=== PATIENT | female | born 1985 | race Caucasian/White ===

== ENCOUNTER → 2016-11-09 | Outpatient (CLI) | payer BC ==
[~2016-11-09] MED LIST: LEVO150T9 PO; OMEP40CA PO; ROPI0.25 PO; SUMA50TA15 PO; VITAMIN B12 PO
[2016-11-09 12:37] LABS: ESTIMATED AVERAGE GLUCOSE 105 mg/dl; HA1C FLAG Normal (Normal); THYROID STIMULATING HORMONE 2.16 uIu/ml (0.300-4.500)
[2016-11-12 20:33] LABS: IGA SERUM 200 mg/dL (81-463); TIS TRANS IGA 1 U/mL (<4)
== END | disposition home or self-care (01) ==
LOC: C.LABBFT 07:50
PROVIDERS: ATTEND Internal Medicine
DX: R10.9 Unspecified abdominal pain (principal); R73.9 Hyperglycemia, unspecified; E03.9 Hypothyroidism, unspecified

== ENCOUNTER → 2017-02-02 | Outpatient (CLI) | payer BC ==
[2017-02-06 22:28] LABS: IGA SERUM 207 mg/dL (81-463); TIS TRANS IGA 1 U/mL (<4)
== END | disposition home or self-care (01) ==
LOC: C.LABBFT 16:06
PROVIDERS: ATTEND Internal Medicine
DX: R10.9 Unspecified abdominal pain (principal)

== ENCOUNTER → 2017-07-12 | Outpatient (CLI) | payer BC | END | disposition home or self-care (01) | LOC: C.PAPS 11:14 | PROVIDERS: ATTEND Obstetrics & Gynecology | DX: Z01.419 Encounter for gynecological examination (general) (routine) without abnormal findings (principal) ==

== ENCOUNTER → 2017-07-31 | Outpatient (CLI) | payer BC ==
[2017-07-31 17:38] LABS: BASO % 0.7 %; BASO ABS # 0.04 K/uL (0-0.2); COMPLETE YES; EOS % 1.8 %; HEMATOCRIT 40.6 % (37-47); IG% 0.2 %; LYMPH % 28.7 %; LYMPH ABS # 1.75 K/uL (1.2-3.4); MEAN CELL VOLUME 89.2 fL (80-100); MEAN CORPUSCULAR HEMOGLOBIN 31.6 pg (25-34); MEAN CORPUSCULAR HGB CONC 35.5 g/dl (32-36); MEAN PLATELET VOLUME 9.6 fL (7.4-10.4); MONO % 5.7 %; NEUT % 62.9 %; PLATELET COUNT 212 K/uL (130-400); RED BLOOD COUNT 4.55 M/uL (4.2-5.4); WHITE BLOOD COUNT 6.09 K/uL (4.8-10.8)
[2017-07-31 17:59] LABS: BLOOD UREA NITROGEN 7 mg/dl (7-18); BUN/CREATININE RATIO 10.7 (10-20); CALCIUM 8.9 mg/dl (8.5-10.1); CARBON DIOXIDE 27 mmol/L (21-32); CHLORIDE 106 mmol/L (98-107); CREATININE 0.68 mg/dl (0.60-1.20); GLUCOSE 86 mg/dl (70-99); POTASSIUM 3.9 mmol/L (3.5-5.1); SODIUM 139 mmol/L (136-145)
[2017-07-31 18:03] LABS: ALKALINE PHOSPHATASE 67 U/L (45-117); ALT/SGPT 28 U/L (12-78); AST/SGOT 14 U/L (15-37)
== END | disposition home or self-care (01) ==
LOC: C.LABBFT 14:21
PROVIDERS: ATTEND Physician Assistant Medical
DX: R10.11 Right upper quadrant pain (principal)

== ENCOUNTER → 2017-08-02 | Outpatient (CLI) | payer BC ==
--- NOTE | 2017-08-02 10:17 | DIAGNOSTIC IMAGING REPORT ---
ABDOMINAL ULTRASOUND, RIGHT UPPER QUADRANT HISTORY: R10.11 Abdominal pain, RUQ (right upper quadrant)[id number]. COMPARISON: Abdominal ultrasound 09/05/2014. FINDINGS: Pancreas: The pancreatic tail is obscured by overlying bowel gas. The remaining portions of the pancreas are within normal limits. Liver: 20 cm in length. No hepatic masses. The main portal vein is patent. Gallbladder: No gallbladder wall thickening. No gallstones. CBD: 4 mm. Right kidney: No hydronephrosis. IMPRESSION: 1. Mild hepatomegaly. No hepatic masses. 2. Normal gallbladder. No gallstones. Electronically signed by: Blaze Mercer M.D. 08/02/2017 10:16 AM Dictated Date/Time: 08/02/2017 10:15 AM
== END | disposition home or self-care (01) ==
LOC: C.ULTR 09:52
PROVIDERS: ATTEND Physician Assistant Medical
DX: R10.11 Right upper quadrant pain (principal)

== ENCOUNTER → 2017-08-14 | Outpatient (CLI) | payer BC ==
[~2017-08-14] MED LIST changes: +SINCALIDE INJ 2 MCG in SODIUM CHLORIDE 0.9% 100ML 100 ML IV SCH
--- NOTE | 2017-08-14 11:22 | DIAGNOSTIC IMAGING REPORT ---
HEPATOBILIARY EF IMAGING HISTORY: Pain. Nausea. R10.11 Abdominal pain, RUQ (right upper quadrant)EJECTION FRACTIO COMPARISON: None. TECHNIQUE: Immediately following the intravenous administration of 5.0 mCi Tc-99m Choletec, dynamic anterior abdominal imaging pre/post 2 mcg of Kinevac was performed. FINDINGS: Uniform hepatic tracer accumulation is shown. Prompt intrahepatic biliary excretion is seen. The gallbladder, common bile duct, and small bowel are all visualized by 25 minutes. This appearance represents the normal sequence of biliary excretion. The gallbladder ejection fraction following administration of Kinevac was 82 % (normal >35%). IMPRESSION: 1. No evidence for cystic duct obstruction. 2. Gallbladder ejection fraction calculated to be 82 %. The above report was generated using voice recognition software. It may contain grammatical, syntax or spelling errors. Electronically signed by: Wicho Ozuna M.D. 08/14/2017 11:20 AM Dictated Date/Time: 08/14/2017 11:19 AM
== END | disposition home or self-care (01) ==
LOC: C.NUCL 08:02
PROVIDERS: ATTEND Physician Assistant Medical
DX: R10.11 Right upper quadrant pain (principal)

== ENCOUNTER 2020-02-10 07:37 | Inpatient (IN) ==
[2020-02-10] MEDS ORDERED: OXYTOCIN 30 UNITS/500 ML BAG IV PRN ×2 (09:00)
[2020-02-10 09:20] LABS: Hematocrit (blood only) 39.1 % (37-47); Hemoglobin 13.7 g/dL (12.0-16.0); Mean Corpuscular Hemoglobin 32.3 pg (25-34); Mean Corpuscular Volume 92.2 fL (80-100); Mean Platelet Volume 9.2 fL (7.4-10.4); Platelet Count 210 K/uL (130-400); RDW Coefficient of Variation 12.6 % (11.5-14.5); RDW Standard Deviation 42.6 fL (36.4-46.3); Red Blood Count 4.24 M/uL (4.2-5.4); White Blood Count 11.61 K/uL (4.8-10.8)
[2020-02-10] MEDS: LACTATED RINGER'S 1,000 ML IV PRN ×2 (09:25→11:50)
--- NOTE | 2020-02-10 10:08 | History & Physical Report ---
Date of Service February 10, 2020 Assessment & Plan (1) Insulin controlled gestational diabetes mellitus (GDM) during : (2) Advanced maternal age in multigravida: (3) 39 weeks gestation of : admit, iv, labs. start pitocin, plan arom when able. pt wants to have epidural for pain mgmt ultimately. fhts categ 1. bsgs q 2hr. History of Present Illness Chief Complaint: Planned induction for GDM on insulin. Primary Care Provider: Sina Duran MD 35yo at 39+wls ega presents to L&D with above cc. Patient denies rom, vb. +FM. no regular ctx. She came in and had gimenez balloon placed intracervically and it fell out about 6am today. She notes am bsg was a little high. Ate breakfast of pop tart and 2 pieces of toast. pnc c/b 1. GDM on insulin--last growth 01/15 EFW 70%, nst testing, nl dvp on monday 2. AMA--low risk panorama 3. Hypothyroid--followed endo 4. Prior Gest HTN--on baby asa 5. Low lying placenta resolved 6. h/o stomach ulcers--has been seeing GI, on carafate 7. could not get heart anatomy x 2, nl echo pnl rh pos , rubella immune , gbs neg. obh: x 1, sab x 1 gynh: no stds, h/o LEEP pmh: migraines, depression/anxiety, rancho's thyroiditis, h/o stomach ulcers, psh: wisdom teeth, tonsillectomy Allergies Allergy/AdvReac Type Severity Reaction Status Date / Time levothyroxine sodium Allergy Intermediate hives Verified 02/10/20 08:02 [From Tirosint] buspirone Allergy Mild DIZZY Verified 02/07/20 08:45 lactase [From Dairy Aid] Allergy Mild Diarrhea Verified 02/10/20 08:02 oxycodone Allergy Mild NAUSEA Verified 02/07/20 08:45 pollen extracts Allergy Mild Itchy Verified 02/10/20 08:02 gluten AdvReac Mild Abdominal Verified 02/07/20 08:45 Pain predniSONE TABS Allergy Intermediate Hives Uncoded 02/10/20 08:02 Vicodin TABS Allergy Intermediate Nausea Uncoded 02/10/20 08:02 Percocet TABS Allergy Mild Nausea Uncoded 02/10/20 08:02 Home Medications Home Medications Medication Instructions Recorded Confirmed Type levothyroxine 200 mcg tablet 200 mcg PO DAILY #90 tab 06/26/19 02/10/20 Rx acetone (urine) test #50 ea 08/30/19 02/07/20 Rx blood sugar diagnostic #120 ea 08/30/19 02/07/20 Rx lancets 33 gauge #100 ea 08/30/19 02/07/20 Rx omeprazole 40 mg capsule,delayed 40 mg PO DAILY #90 cap 11/06/19 02/10/20 Rx release insulin syringe-needle U-100 0.5 #40 ea 12/23/19 02/07/20 Rx mL 31 gauge x 5/16" insulin syringe,safetyneedle 1 mL #100 ea 12/25/19 02/07/20 Rx 29 gauge x 1/2" Patient History Family History (Updated 07/15/19 @ 14:20 by Lexy Hanley) Mother Diabetes Hypothyroidism (acquired) Heart disease Liver disease Depression Grandfather (Maternal) Family hx of colon cancer Grandmother (Paternal) Breast cancer Grandmother (Maternal) Cervical cancer Social History (Updated 07/15/19 @ 14:23 by Lexy Hanley) Preferred Language: Luxembourgish Communication Ability: Effective Final Coat Sprayer Required: No Beliefs That Will Affect Care: None marital status: Single marital status details: ILYA Hill (34) [phone] Current Living Situation: Parent Current Living Situation Comment: Patient lives with her mother and son. current occupational status: employed current occupation: commercial real estate manager @ [employer] Other Information That Helps Us Care for You: No Feels Safe at Home: Yes Safety Concerns: Feels Safe At This Time Smoking Status: Current every day smoker Tobacco Type: cigarettes ; packs per day: 0.5 ; Cigarettes Per Day: 10 ; Do You Dip or Chew Tobacco: No ; Second Hand Exposure: Yes ; Tobacco Cessation Education Requested by Patient: No Hx Alcohol Use: No Hx Substance Use: No Review of Systems as per Subjective / HPI Physical Exam Constitutional: WD/WN, vitals as above Respiratory: normal respiratory effort, lungs clear to auscultation Cardiovascular: Rate/Rhythm: regular rate and regular rhythm Gastrointestinal (Abdomen): soft gravid nt Musculoskeletal: no edema nontender calves Neurologic: grossly normal Psychiatric: A+Ox3, euthymic affect Genitourinary: Manual OB Exam: + cervical dilation (4), + cervical effacement 50% and + station high OB Exam Monitor Tracing: + external FHT monitor used (155 mod variability, spont accels), + external uterine monitor used (irrit) and + normal FHT variability Results & Data Vital Signs (Past 12 Hours) Vital Signs Temp Pulse Resp BP 02/10/20 09:27 93 H 128/83 02/10/20 08:04 99.1 F 20 02/10/20 07:55 99.1 F 123 H 20 124/85 Code Status & VTE Plan VTE Prophylaxis Plan VTE Prophylaxis will be ordered: No Coding Level of Care Code None Diagnoses Insulin controlled gestational diabetes mellitus (GDM) during O24.414 Advanced maternal age in multigravida O09.529 39 weeks gestation of Z3A.39
[2020-02-10] MEDS ORDERED: BUPIVACAINE 0.25% 30 ML VIAL ONE (11:14)
[2020-02-10] MEDS ORDERED: ePHEDrine sulfate 50 MG/ML AMP ONE (11:14)
[2020-02-10] MEDS ORDERED: fentaNYL 2MCG/ML ROPIV 1.25MG/ML 100 ML BAG EPI ONE (11:15)
[2020-02-10] MEDS ORDERED: fentaNYL citrate 100 MCG/2 ML VIAL ONE (11:15)
--- NOTE | 2020-02-10 11:31 | Anesthesiology Consultation ---
Date of Service February 10, 2020 Assessment & Plan (1) Encounter for pre-operative examination: Chart Review Chart Review: Patient NOT seen in Pre Admission Testing and Acceptable Risk for Labor Epidural Consults Requested none ASA ASA3 Proposed Anesthesia Anesthesia Type: Labor Epidural Risk / Benefits Reviewed With: PT / POA / Parent / Guardian, Accepts Plan and Informed Consent Obtained History Height/Weight Height: 5 ft 10 in Weight: 99.79 kg Allergies Allergy/AdvReac Type Severity Reaction Status Date / Time levothyroxine sodium Allergy Intermediate hives Verified 02/10/20 08:02 [From Tirosint] buspirone Allergy Mild DIZZY Verified 02/07/20 08:45 lactase [From Dairy Aid] Allergy Mild Diarrhea Verified 02/10/20 08:02 oxycodone Allergy Mild NAUSEA Verified 02/07/20 08:45 pollen extracts Allergy Mild Itchy Verified 02/10/20 08:02 gluten AdvReac Mild Abdominal Verified 02/07/20 08:45 Pain predniSONE TABS Allergy Intermediate Hives Uncoded 02/10/20 08:02 Vicodin TABS Allergy Intermediate Nausea Uncoded 02/10/20 08:02 Percocet TABS Allergy Mild Nausea Uncoded 02/10/20 08:02 Medications Home Medications Medication Instructions Recorded Confirmed Last Taken levothyroxine 200 mcg tablet 200 mcg PO DAILY #90 tab 06/26/19 02/10/20 02/10/20 06:30 acetone (urine) test #50 ea 08/30/19 02/07/20 Unknown blood sugar diagnostic #120 ea 08/30/19 02/07/20 Unknown lancets 33 gauge #100 ea 08/30/19 02/07/20 Unknown omeprazole 40 mg capsule,delayed 40 mg PO DAILY #90 cap 11/06/19 02/10/20 23:00 release insulin syringe-needle U-100 0.5 #40 ea 12/23/19 02/07/20 Unknown mL 31 gauge x 5/16" insulin syringe,safetyneedle 1 mL #100 ea 12/25/19 02/07/20 Unknown 29 gauge x 1/2" Active Medications Generic Name Dose Route Start Last Admin Trade Name Freq PRN Reason Stop Dose Admin Lactated Ringer's 1,000 mls @ 125 mls/hr 02/10/20 09:00 02/10/20 11:50 Lr IV 02/12/20 08:59 125 mls/hr .Q8H PRN Administration L&D Protocol Protocol Oxytocin 30 units in 500 mls @ 3 mls/hr 02/10/20 09:00 02/10/20 10:04 Pitocin IV 02/12/20 08:59 0.18 units/hr .Q24H PRN 3 mls/hr Labor Induction/Augmentation Titration Protocol 0.18 UNITS/HR NPO Date Last Intake of Fluids: 02/10/20 Time Last Intake of Fluids: 11:29 Date Last Intake of Solids: 02/10/20 Time Last Intake of Solids: 07:00 Past Medical History Medical History Anxiety Chronic back pain Depression Dysplasia of cervix Family history of colonic polyps GERD (gastroesophageal reflux disease) Gestational diabetes Gestational diabetes mellitus (GDM) affecting , antepartum Gluten intolerance Hypertension NO MEDS Hypothyroidism Migraine Miscarriage induced hypertension Restless leg syndrome Sleep apnea "BORDERLINE" NO DEVICE Stomach ulcer Varicella Yeast infection Exercise / Class Metabolic Activity II 4-5 Yardwork/Stairs/Walk up hill Past Family History Family History Mother Diabetes Hypothyroidism (acquired) Heart disease Liver disease Depression Grandfather (Maternal) Family hx of colon cancer Grandmother (Paternal) Breast cancer Grandmother (Maternal) Cervical cancer Past Surgical History Surgical History Family history of reaction to anesthesia MOTHER-PONV H/O LEEP History of colonoscopy History of dilatation and curettage History of esophagogastroduodenoscopy (EGD) History of tonsillectomy History of tooth extraction Nausea and vomiting after administration of anesthetic agent Past Anesthesia History No Hx of Anesthesia Complications History of PONV History of PONV Social History Smoking Status: Current every day smoker tobacco type: cigarettes Smoking cigarettes per day: 10 Do You Dip or Chew Tobacco: No Hx Alcohol Use: No Hx Substance Use: No substance use type: does not use Review of Systems Patient denies history of abnormal bleeding or bleeding disorder. Patient denies active use of anticoagulants other than low dose aspirin. Patient denies active symptoms of GERD. Patient denies numbness, tingling or weakness in lower extremities. Negative for chest pain or shortness of breath. Physical Exam Vital Signs Last Vital Signs Temp 36.6 C 02/10/20 10:37 Pulse 73 02/10/20 11:32 Resp 20 02/10/20 10:37 BP 123/82 02/10/20 11:24 Pulse Ox 100 02/10/20 11:32 Constitutional not obese (Gravid uterus) ENMT Mouth: no TMJ abnormality and oral opening not small Thyromental Distance: > or= 3.5 Finger Breadths Mallampati Class: II Neck normal visual inspection; neck extension not limited Respiratory normal respiratory effort Auscultation: lungs clear to auscultation bilaterally Cardiovascular Rate/Rhythm: regular rate and regular rhythm Heart Sounds: no murmur Neurologic moves all extremities Motor/Sensory: no sensory deficit Psychiatric Orientation: alert and oriented x 3 Testing Laboratory Results 02/10/20 09:10 02/10/20 02/10/20 10:35 08:39 POC Glucose 71 128 H
[2020-02-10] MEDS ORDERED: NALOXONE HCL 0.4 MG/1 ML VIAL/CARP IV PRN ×2 (12:19→15:42)
[2020-02-10] MEDS ORDERED: NALBUPHINE HCL INJ 10 MG/ML AMP IV PRN ×2 (12:19→15:42)
[2020-02-10] MEDS ORDERED: NALOXONE HCL 1 MG in SODIUM CHLORIDE 0.9% 1000ML 1,000 ML IV PRN ×2 (12:19→15:42)
[2020-02-10] MEDS ORDERED: ONDANSETRON INJ 2 MG/ML 2 ML VIAL IV PRN ×2 (12:19→15:42)
[2020-02-10] MEDS ORDERED: DiphenhydrAMINE HCL 50 MG/ML VIAL IV PRN (12:19)
[2020-02-10] MEDS ORDERED: ePHEDrine sulfate 50 MG/ML AMP IV PRN ×2 (12:19→15:42)
[2020-02-10] MEDS ORDERED: fentaNYL 2MCG/ML ROPIV 1.25MG/ML 100 ML BAG EPI PRN (12:19)
[2020-02-10] MEDS ORDERED: LIDOCAINE/EPINEPHRINE 2% 1:200,000 20 ML SDV ONE (14:06)
[2020-02-10] MEDS ORDERED: CEFAZOLIN 250 MG/ML 1 GM VIAL ONE ×2 (14:15→15:21)
[2020-02-10] MEDS ORDERED: PHENYLEPHRINE HCL 10 MG/ML VIAL ONE (14:16)
[2020-02-10] MEDS ORDERED: ONDANSETRON INJ 2 MG/ML 2 ML VIAL ONE (14:16)
[2020-02-10] MEDS ORDERED: OXYTOCIN 10 UNITS/ML VIAL ONE ×2 (14:18→14:49)
[2020-02-10] MEDS ORDERED: CARBOPROST TROMETHAMINE 250 MCG/ML AMPUL ONE (14:19)
[2020-02-10] MEDS ORDERED: MIDAZOLAM HCL 1 MG/ML 2ML VIAL ONE (14:24)
[2020-02-10] MEDS ORDERED: MoRPHine SULFATE PF 1 MG/ML 10 ML AMP/VIAL ONE (14:28)
[2020-02-10] MEDS ORDERED: TERBUTALINE SULFATE 1 MG/ML VIAL ONE (14:37)
--- NOTE | 2020-02-10 14:47 | Post Operative Brief Note ---
PG Immediate Post Op with CF Date of Surgery February 10, 2020 Pre & Post Diagnosis Operation Date: 02/10/20 14:15 <No data on this case meets the specified criteria> 1. 39wks ega iup 2. GDM on insulin 3. Pitocin induction 4. bradycardia, remote from delivery I identified the patient and participated in the time-out.: Yes Procedure Operation Date: 02/10/20 14:15 Primary Low Transverse Section Surgeon Catherine Smith MD, FACOG Information Receptionist Donny Estimated Blood Loss 1,000 Findings Consistent with Post-Op Diagnosis (viable male . body cord x 2. normal uterus tubes and ovaries bilaterally) Fluids 700 Specimens Specimen Description: cord blood, cord gases, placenta Drains Henry Catheter Anesthesia Type Labor Epidural Complications none Disposition Accompanied Patient To Recovery: No Disposition: L&D
[2020-02-10 14:54] LABS: Base Excess Cord Arterial Bld -6.1 mEq/L (-9-1.8); CO2 Cord Arterial Blood 60 mmHg (39.1-73.5); HCO3 Cord Arterial Blood 23 mmol/L (19.7-28.5); PO2 Cord Arterial Blood 16 mmHg (4.1-31.7)
[2020-02-10 14:56] LABS: Oxygen Sat Cord Arterial Blood < 60.0 % (<60)
[2020-02-10] MEDS ORDERED: LACTATED RINGER'S 1,000 ML IV SCH (15:00)
[2020-02-10] MEDS ORDERED: DIPHTHERIA/TETANUS/PERTUSSIS 0.5 ML SYR/VIAL IM ONE (15:00)
[2020-02-10] MEDS ORDERED: HYDROCORTISONE ACETATE 25 MG SUPP PR PRN (15:00)
[2020-02-10] MEDS ORDERED: SUPERCREAM 0.870% 15 GM JAR EXT PRN (15:00)
[2020-02-10] MEDS ORDERED: BENZOCAINE 20% AER SPR 82.5 GM CAN EXT PRN (15:00)
[2020-02-10] MEDS ORDERED: CARBOPROST TROMETHAMINE 250 MCG/ML AMPUL IM ONE (15:01)
[2020-02-10 15:02] LABS: Base Excess Cord Venous Blood -6.4 mEq/L (-7.7-1.9); Cord Venous Blood HCO3 21 mmol/L (18.4-26.8); Cord Venous Blood PCO2 49 mmHg (30.4-57.2); Cord Venous Blood PO2 23 mmHg (14.1-43.3); Cord Venous Blood pH 7.25 (7.20-7.44)
[2020-02-10 15:11] LABS: O2 Saturation Cord Venous Bld < 60.0 % (<68)
--- NOTE | 2020-02-10 15:15 | Operative Report ---
PG Post Operative Report Pre & Post Diagnosis Operation Date: 02/10/20 14:15 Pre-Op Diagnosis: 39 weeks;Induction of labor;Gestational Diabetes on Insulin; bradycardia;Remote from delivery Post-Op Diagnosis: Same;delivery of a live male child at 1417 I identified the patient and participated in the time-out.: Yes Procedure Operation Date: 02/10/20 14:15 Actual Procedures Primary Low Transverse Section Surgeon Catherine Smith MD, FACOG Clinical Counselor Donny Estimated Blood Loss 1,000 Findings Consistent with Post-Op Diagnosis (viable male apgars 9,9. body cord x 2. normal uterus, tubes and ovaries bilaterally) Fluids 700 Specimens cord blood, cord gases, placenta Drains gimenez Anesthesia Type Labor Epidural Complications none Disposition Accompanied Patient To Recovery: No Disposition: L&D Indications 35yo at 39wks yana presents to L&D for planned induction with h/o GDM on insulin. Her full H&P is in the chart. Last evening she had an outpt gimenez ripening balloon placed. Today on her arrival to L&D it had fallen out at 6am and cervix was 4cm and pitocin was begun. Due to pain, pt received an epidural and then had SROM, clear fluid. Cervix exam at that time was still 4cm but station had improved to -2. I was called to see patient emergently due to patients sudden onset of generalized pain, chest pain and SOB. On my arrival to room, fhts in 70s. Pitocin had been off. O2 was applied, ivf bolus was infusing. FSE applied with cervix exam 5/100/-2. She was rolled in multiple positions and went to knee chest position with assistance. SQ terbutaline was given as there was a thought that uterus was sue. These maneuvers resulted in periodic increase in FHTs to 100s but then return to 70s. Patient was counseled and readied for section. When fhts were increasing to 100s, offered to wait but patient was ready to proceed to section. Consent was reviewed and signed. Anesthesia had been notified already and was in the room. Description of Procedure The patient was taken to the operating room and identified. She was placed in the supine position with a leftward tilt on the operating table and prepped and draped in the usual sterile fashion. Her epidural had already been bolused and a gimenez catheter had already been placed in the labor room. The knife was used to create a Pfannenstiel skin incision that was carried down to the underlying layer of fascia. The fascia was nicked in the midline and this opening was extended laterally using Arreola scissors. The superior and inferior aspect of the fascial incision was bluntly tented upward and the underlying rectus muscles were dissected off the overlying fascia both sharply and bluntly using Arreola scissors. The rectus muscles were bluntly in the midline. The peritoneal cavity was bluntly entered into. This opening was stretched. The bladder blade was placed. The vesicouterine peritoneum was elevated and opened up into and the bladder flap was created digitally and bladder blade was replaced. The knife was used to create a hysterotomy and this opening was stretched. The operators hand was placed through the hysterotomy and the bladder blade was removed. The head was elevated and flexed and with fundal pre ssure the head was delivered. The shoulders and body were rapidly delivered. The cord was clamped and cut and the infant's mouth and nares were bulb suction. The infant was handed off to the awaiting pediatricians. Cord blood and cord gases were obtained. The placenta was manually expressed. The uterus was exteriorized and cleared of all clots and debris. Dilute IV Pitocin was begun. The uterine tone was in adequate. After checking the blood presssure, IM hemabate to be given intrauterine was readied. The hysterotomy was closed in a running interlocking fashion using 0 Vicryl followed by a second imbricating layer of 0 Vicryl. Once readied, the IM hemabate was given into the uterine muscle. The uterine tone was improving. The hysterotomy was not hemostatic in the midline and so 2 interrupted figure of eight sutures of 0 vicryl were placed for excellent hemostasis. The pelvis was irrigated. The uterus was returned to the abdomen. The gutters were cleared of all clots and debris. The hysterotomy was reinspected and noted to be hemostatic. The fascia was then closed in running fashion using 0 Vicryl. The subcutaneous fat was copiously irrigated and reapproximated using 2-0 chromic. The skin was closed in a subcuticular fashion using 4-0 Vicryl. At this point the procedure was terminated. The patient was transferred to the recovery room in stable condition. All sponge, lap and needle counts are correct x2. I attest to the content of the Intraoperative Record and any orders documented therein. Any exceptions are noted below.
--- NOTE | 2020-02-10 15:18 | Labor Progress Brief Note ---
Date of Service February 10, 2020 Subjective Reason For Note: Requested By RN his This is late entry and describes events that led to decision for c/s. I was called to see patient emergently due to patients sudden onset of generalized pain, chest pain and SOB. On my arrival to room, fhts in 70s. Pitocin had been off. O2 was applied, ivf bolus was infusing. FSE applied with cervix exam 5/100/-2. She was rolled in multiple positions and went to knee chest position with assistance. SQ terbutaline was given as there was a thought that uterus was sue. These maneuvers resulted in periodic increase in FHTs to 100s but then return to 70s. Patient was counseled and readied for c esarean section. When fhts were increasing to 100s, offered to wait but patient was ready to proceed to section. Consent was reviewed and signed. Anesthesia had been notified already and was in the room. Assessment & Plan (1) 39 weeks gestation of : (2) Insulin controlled gestational diabetes mellitus (GDM) during : (3) Advanced maternal age in multigravida: (4) Encounter for induction of labor: (5) bradycardia: As noted in HPI. Bradycardia was persistent despite measures to improve. Recommended section and reviewed alternatives with patient and mother. She desired to proceed. Consent was reviewed and signed. Headed back to OR, anesth present, OR being readied. Physical Exam Genitourinary: Manual OB Exam: + cervical dilation 5 cm, + cervical effacement 100% and + station -2 OB Exam Monitor Tracing: + scalp electrode used (70s ) and + external uterine monitor used (q2) pit was at 5 but was off by the time i was in the room Results & Data Vital Signs (Past 12 Hours) Vital Signs Temp Pulse Resp BP Pulse Ox 02/10/20 15:09 105 H 100 02/10/20 15:07 103 H 106/55 L 02/10/20 15:04 96 H 99 02/10/20 15:01 85 150/89 H 02/10/20 14:59 87 95 02/10/20 14:58 88 65/31 L 02/10/20 14:56 93 H 79/38 L 02/10/20 14:55 94 H 94 02/10/20 14:54 94 H 94 02/10/20 14:02 111 H 100 02/10/20 13:57 79 90 02/10/20 13:52 112 H 92 02/10/20 13:48 62 131/72 02/10/20 13:47 58 L 100 02/10/20 13:42 68 100 02/10/20 13:37 79 100 02/10/20 13:32 73 126/64 100 02/10/20 13:27 80 97 02/10/20 13:22 70 100 02/10/20 13:17 78 100 02/10/20 13:16 71 124/64 02/10/20 13:12 68 98 02/10/20 13:09 68 123/60 02/10/20 13:07 86 99 02/10/20 13:02 81 99 02/10/20 12:58 69 126/62 02/10/20 12:57 70 99 02/10/20 12:52 72 129/64 99 02/10/20 12:49 98.1 F 20 02/10/20 12:47 75 127/61 98 02/10/20 12:43 73 131/63 02/10/20 12:42 70 99 02/10/20 12:37 75 20 126/62 100 02/10/20 12:32 79 100 02/10/20 12:30 73 20 118/56 L 02/10/20 12:28 74 120/57 L 02/10/20 12:27 75 20 112/60 100 02/10/20 12:24 118 H 158/70 H 02/10/20 12:23 71 22 140/68 02/10/20 12:22 74 100 02/10/20 12:20 69 20 119/60 02/10/20 12:18 82 20 116/58 L 02/10/20 12:17 82 99 02/10/20 12:16 78 20 121/61 02/10/20 12:14 74 113/57 L 02/10/20 12:12 79 20 108/56 L 100 02/10/20 12:10 73 105/60 02/10/20 12:08 75 24 116/59 L 02/10/20 12:07 75 100 02/10/20 12:06 69 24 125/59 L 02/10/20 12:04 79 20 134/71 02/10/20 12:02 79 18 133/83 100 04/20/20 12:00 81 18 137/88 02/10/20 11:58 72 18 135/81 02/10/20 11:57 64 100 02/10/20 11:52 86 98 02/10/20 11:50 79 92 02/10/20 11:47 73 100 02/10/20 11:42 87 100 02/10/20 11:37 70 100 02/10/20 11:32 73 100 02/10/20 11:27 69 100 02/10/20 11:24 57 L 123/82 02/10/20 11:22 76 100 02/10/20 10:37 97.9 F 77 20 116/72 02/10/20 09:27 93 H 128/83 02/10/20 08:04 99.1 F 20 02/10/20 07:55 99.1 F 123 H 20 124/85 Coding Level of Care Code None Diagnoses 39 weeks gestation of Z3A.39 Insulin controlled gestational diabetes mellitus (GDM) during O24.414 Advanced maternal age in multigravida O09.529 Encounter for induction of labor Z34.90 bradycardia
[2020-02-10] MEDS ORDERED: TERBUTALINE SULFATE 1 MG/ML VIAL SQ ONE (15:19)
[2020-02-10] MEDS ORDERED: ePHEDrine sulfate 50 MG/ML SYR ONE (15:24)
[2020-02-10] MEDS ORDERED: SODIUM CHLORIDE 0.9% INJ 10 ML VIAL ONE (15:24)
[2020-02-10] MEDS ORDERED: ACETAMINOPHEN 1000 MG/100 ML IV IV PRN (15:42)
[2020-02-10] MEDS ORDERED: NALOXONE HCL 0.08 MG in SYRINGE 1.8 ML IV PRN (15:42)
[2020-02-10] MEDS ORDERED: MoRPHine SULFATE PF 1 MG/ML 10 ML AMP/VIAL EPI ONE (15:42)
[2020-02-10] MEDS ORDERED: KETOROLAC 30 MG/ML VIAL IV PRN (15:42)
[2020-02-10] MEDS ORDERED: LACTATED RINGER'S 500 ML IV PRN (15:42)
[2020-02-10] MEDS ORDERED: PROMETHAZINE HCL 25 MG in SODIUM CHLORIDE 0.9% 50 ML IV PRN (15:42)
[2020-02-10] MEDS ORDERED: HYDROmorphone INJ 0.5 MG/0.5 ML SYR IV PRN (15:42)
[2020-02-10] MEDS ORDERED: SODIUM CHLORIDE 0.9% 1000ML 1,000 ML IV SCH (15:45)
[2020-02-10] MEDS ORDERED: DC INTRASPINAL MORPHINE SCH (15:45)
[2020-02-10] MEDS ORDERED: NO NARCOTICS OR SEDATIVES SCH (15:45)
--- NOTE | 2020-02-10 15:47 | Anesthesia Procedure Note ---
Date of Service February 10, 2020 Anesthesia Post Epidural Note Vital Signs Vital Signs: Temp Pulse Resp BP Pulse Ox 36.6 C 96 H 28 H 122/57 L 100 02/10/20 14:56 02/10/20 15:44 02/10/20 15:35 02/10/20 15:45 02/10/20 15:44 Notes Mental Status: alert / awake / arousable and participated in evaluation Nausea / Vomiting: adequately controlled Pain: adequately controlled Airway Patency, RR, SpO2: stable & adequate BP & HR: stable & adequate Hydration State: stable & adequate Neuraxial Anesthesia: was administered and sensory block is resolving Anesthetic Complications: no major complications apparent and Pt Satisfied with anesthetic care Epidural: Removed without complications and With tip intact Notes: Epidural site clean, dry and intact. No signs of edema, erythema or bruising at insertion site. Pt instructed to request anesthesia if she has residual lower extremity numbness or if she develops lower extremity pain or weakness, back pain or headache.
--- NOTE | 2020-02-10 15:48 | Anesthesiology Progress Note ---
Date of Service February 10, 2020 Anesthesia Post Procedure Vital Signs Vital Signs: Temp Pulse Resp BP Pulse Ox 02/10/20 15:45 97 H 122/57 L 02/10/20 15:44 96 H 100 02/10/20 15:39 100 H 100 02/10/20 15:36 85 106/62 02/10/20 15:35 28 H 02/10/20 15:34 88 100 02/10/20 15:29 94 H 100 02/10/20 15:26 102 H 83/53 L 02/10/20 15:25 20 02/10/20 15:24 101 H 100 02/10/20 15:21 91 H 115/58 L 02/10/20 15:19 97 H 99 02/10/20 15:15 24 02/10/20 15:14 102 H 100 02/10/20 15:09 105 H 100 02/10/20 15:07 103 H 106/55 L 02/10/20 15:05 24 02/10/20 15:04 96 H 99 02/10/20 15:01 85 150/89 H 02/10/20 14:59 87 95 02/10/20 14:58 88 65/31 L 02/10/20 14:56 36.6 C 93 H 23 79/38 L 02/10/20 14:55 94 H 94 02/10/20 14:54 94 H 94 02/10/20 14:02 111 H 100 02/10/20 13:57 79 90 02/10/20 13:52 112 H 92 02/10/20 13:48 62 131/72 02/10/20 13:47 58 L 100 02/10/20 13:42 68 100 02/10/20 13:37 79 100 02/10/20 13:32 73 126/64 100 02/10/20 13:27 80 97 02/10/20 13:22 70 100 02/10/20 13:17 78 100 02/10/20 13:16 71 124/64 02/10/20 13:12 68 98 02/10/20 13:09 68 123/60 02/10/20 13:07 86 99 02/10/20 13:02 81 99 02/10/20 12:58 69 126/62 02/10/20 12:57 70 99 04/20/20 12:52 72 129/64 99 04/20/20 12:49 36.7 C 20 02/10/20 12:47 75 127/61 98 02/10/20 12:43 73 131/63 02/10/20 12:42 70 99 02/10/20 12:37 75 20 126/62 100 02/10/20 12:32 79 100 02/10/20 12:30 73 20 118/56 L 02/10/20 12:28 74 120/57 L 02/10/20 12:27 75 20 112/60 100 02/10/20 12:24 118 H 158/70 H 02/10/20 12:23 71 22 140/68 02/10/20 12:22 74 100 02/10/20 12:20 69 20 119/60 02/10/20 12:18 82 20 116/58 L 02/10/20 12:17 82 99 02/10/20 12:16 78 20 121/61 02/10/20 12:14 74 113/57 L 02/10/20 12:12 79 20 108/56 L 100 02/10/20 12:10 73 105/60 02/10/20 12:08 75 24 116/59 L 02/10/20 12:07 75 100 02/10/20 12:06 69 24 125/59 L 02/10/20 12:04 79 20 134/71 02/10/20 12:02 79 18 133/83 100 02/10/20 12:00 81 18 137/88 02/10/20 11:58 72 18 135/81 02/10/20 11:57 64 100 02/10/20 11:52 86 98 02/10/20 11:50 79 92 02/10/20 11:47 73 100 02/10/20 11:42 87 100 02/10/20 11:37 70 100 02/10/20 11:32 73 100 02/10/20 11:27 69 100 02/10/20 11:24 57 L 123/82 02/10/20 11:22 76 100 02/10/20 10:37 36.6 C 77 20 116/72 02/10/20 09:27 93 H 128/83 02/10/20 08:04 37.3 C 20 02/10/20 07:55 37.3 C 123 H 20 124/85 Transfer of Care Handoff Completed per policy Notes Mental Status: alert / awake / arousable and participated in evaluation Nausea / Vomiting: adequately controlled Pain: adequately controlled Airway Patency, RR, SpO2: stable & adequate BP & HR: stable & adequate Hydration State: stable & adequate Neuraxial Anesthesia: was administered and sensory block is resolving Anesthetic Complications: no major complications apparent and Pt Satisfied with anesthetic care
[2020-02-10] MEDS: OXYTOCIN 20 UNITS in LACTATED RINGER'S 1,000 ML IV SCH (16:03)
[2020-02-10] MEDS: SIMETHICONE 80 MG CHEW PO SCH ×2 (17:35→21:04)
[2020-02-10] MEDS ORDERED: METOCLOPRAMIDE HCL INJ 5 MG/ML 2 ML VIAL IV PRN (17:51)
[2020-02-10] MEDS ORDERED: SCOPOLAMINE 1.5 MG TDSY TD ONE (17:52)
[2020-02-10] MEDS ORDERED: METOCLOPRAMIDE HCL INJ 5 MG/ML 2 ML VIAL ONE (17:53)
[2020-02-10] MEDS: DiphenhydrAMINE HCL 50 MG/ML VIAL IV PRN (18:16)
[2020-02-10] MEDS: DOCUSATE SODIUM 100 MG CAP PO SCH (21:04)
[2020-02-11] MEDS: OXYTOCIN 20 UNITS in LACTATED RINGER'S 1,000 ML IV SCH (00:30)
[2020-02-11] MEDS: DiphenhydrAMINE HCL 50 MG/ML VIAL IV PRN (01:25)
[2020-02-11] MEDS ORDERED: LEVOTHYROXINE SODIUM 200 MCG TABLET PO SCH (06:30)
[2020-02-11 07:05] LABS: Basophils # (auto) 0.03 K/uL (0-0.2); Basophils % (auto) 0.3 %; Eosinophils # (auto) 0.04 K/uL (0-0.5); Eosinophils % (auto) 0.4 %; Hematocrit (blood only) 31.6 % (37-47); Hemoglobin 10.9 g/dL (12.0-16.0); Immature Granulocytes # (auto) 0.03 K/uL (0.00-0.02); Immature Granulocytes % (auto) 0.3 %; Lymphocytes # (auto) 1.42 K/uL (1.2-3.4); Lymphocytes % (auto) 12.6 %; Mean Corpuscular Hgb Conc 34.5 g/dL (32-36); Mean Corpuscular Volume 92.7 fL (80-100); Mean Platelet Volume 9.1 fL (7.4-10.4); Monocytes # (auto) 0.83 K/uL (0.11-0.59); Monocytes % (auto) 7.4 %; Neutrophils # (auto) 8.93 K/uL (1.4-6.5); Platelet Count 159 K/uL (130-400); RDW Coefficient of Variation 12.5 % (11.5-14.5); RDW Standard Deviation 42.5 fL (36.4-46.3); Red Blood Count 3.41 M/uL (4.2-5.4); White Blood Count 11.28 K/uL (4.8-10.8)
[2020-02-11] MEDS: SIMETHICONE 80 MG CHEW PO SCH ×4 (07:29→20:08)
[2020-02-11] MEDS: PRENATAL VITAMIN 1 TAB PO SCH (07:29)
[2020-02-11] MEDS: DOCUSATE SODIUM 100 MG CAP PO SCH ×2 (07:29→20:09)
--- NOTE | 2020-02-11 07:46 | Obstetrical Progress Note ---
Date of Service February 11, 2020 Assessment & Plan (1) S/P section: (2) 39 weeks gestation of : (3) bradycardia: doing well, stable. cbc reviewed. will plan for gimenez out, ambulating and po pain meds today. reviewed events of the delivery. she no longer has had any pain, generalized and cp and sob. Stressed importance of use of scds while in bed. we discussed her h/o depression, with all of her social stressors she is interested in resuming zoloft. she has been off of that and wellbutrin for her entire . she feels uncertain of dose, will start at 50mg x 7days for now and she can check with her pcp or former prescriber about dosing. Subjective Voiding: gimenez catheter in place Passing Gas:: Yes Diet Tolerance:: clear liquids Lochia:: Small pt without cp or sob. no further n/v since last evening. broderick crackers and fluids. doing well. Physical Exam Constitutional WD/WN, vitals as above Respiratory normal respiratory effort, lungs clear to auscultation Cardiovascular Rate/Rhythm: regular rate and regular rhythm Gastrointestinal (Abdomen) Inspection/Auscultation: normal bowel sounds and + abdominal surgical incision (c/d/i) Percussion/Palpation: abdomen soft; abdomen nontender FF at u Musculoskeletal nt calves Neurologic grossly normal Psychiatric A+Ox3, euthymic affect Results & Data Vital Signs (Past 12 Hours) Vital Signs Temp Pulse Resp BP Pulse Ox 02/11/20 06:10 18 96 02/11/20 05:25 18 96 02/11/20 04:30 18 98 02/11/20 04:20 98.4 F 68 18 104/66 02/11/20 03:25 16 96 02/11/20 02:25 16 96 02/11/20 01:25 18 100 02/11/20 00:30 16 100 02/10/20 23:15 98.4 F 67 18 119/72 100 02/10/20 22:35 16 97 02/10/20 21:10 18 97 02/10/20 20:05 16 92
[2020-02-11] MEDS: SERTRALINE HCL 50 MG TABLET PO SCH (09:16)
[2020-02-11] MEDS: IBUPROFEN 600 MG TAB PO PRN ×3 (09:16→20:07)
[2020-02-11] MEDS: PANTOprazole 40 MG TAB PO SCH (09:17)
[2020-02-11] MEDS: CHECK SCOPOLAMINE PATCH PLACEMENT SCH ×2 (09:17)
[2020-02-11] MEDS ORDERED: ACETAMINOPHEN W/CODEINE #3 1 TAB PO PRN (09:43)
[2020-02-11] MEDS ORDERED: PROMETHAZINE HCL 25 MG in SODIUM CHLORIDE 0.9% 50 ML IV PRN (09:43)
[2020-02-11] MEDS ORDERED: DiphenhydrAMINE HCL 50 MG/ML VIAL IV PRN (09:43)
[2020-02-11] MEDS ORDERED: KETOROLAC 30 MG/ML VIAL IV PRN (09:43)
[2020-02-11] MEDS ORDERED: ONDANSETRON INJ 2 MG/ML 2 ML VIAL IV PRN (09:43)
[2020-02-11] MEDS: ACETAMINOPHEN 325 MG TAB PO PRN ×3 (11:50→22:52)
[2020-02-12] MEDS: IBUPROFEN 600 MG TAB PO PRN ×3 (00:37→12:12)
[2020-02-12] MEDS: ACETAMINOPHEN 325 MG TAB PO PRN ×2 (02:48→08:30)
[2020-02-12 06:00] LABS: Hematocrit (blood only) 32.3 % (37-47); Hemoglobin 11.1 g/dL (12.0-16.0)
--- NOTE | 2020-02-12 07:21 | Obstetrical Progress Note ---
Date of Service February 12, 2020 Assessment & Plan (1) S/P section: POD#2 doing well, feeling well. Desires discharge. Discussed her h/o zoloft use and anxiety/depression history. Not currently experiencing depression symptoms, but wants to prevent this. She will plan to t lorenzo Zoloft 50mg daily upon going home (has this at home) and will followup with prescribing PCP within 2 weeks for further prescription instructions. Subjective Ambulation: ambulating normally Voiding: no voiding problems Passing Gas:: Yes Diet Tolerance:: regular diet Lochia:: Moderate Feeding Type:: breast feeding POD#2 doing well. Desires discharge. Review of Systems All systems reviewed & are unremarkable except as noted in HPI & below Physical Exam Incision CDI Constitutional WD/WN, vitals as above no acute distress Respiratory normal respiratory effort Cardiovascular Rate/Rhythm: regular rate and regular rhythm Gastrointestinal (Abdomen) Inspection/Auscultation: abdomen normal to inspection; abdomen not distended Percussion/Palpation: abdomen soft Genitourinary OB Exam Abdomen: + fundal height Fundus: + firm; not tender Results & Data Vital Signs (Past 12 Hours) Vital Signs Temp Pulse Resp BP Pulse Ox 02/11/20 23:30 36.6 C 52 L 18 133/71 99 02/11/20 20:20 36.8 C 54 L 18 128/81 99
[2020-02-12] MEDS: PRENATAL VITAMIN 1 TAB PO SCH (08:29)
[2020-02-12] MEDS: SERTRALINE HCL 50 MG TABLET PO SCH (08:29)
[2020-02-12] MEDS: SIMETHICONE 80 MG CHEW PO SCH ×2 (08:29→12:12)
[2020-02-12] MEDS: DOCUSATE SODIUM 100 MG CAP PO SCH (08:29)
[2020-02-12] MEDS: PANTOprazole 40 MG TAB PO SCH (08:29)
[2020-02-12] MEDS: CHECK SCOPOLAMINE PATCH PLACEMENT SCH ×2 (12:13)
--- NOTE | 2020-02-14 21:16 | Discharge Summary ---
Date of Service Day of admission: February 10, 2020 Day of discharge: February 12, 2020 Admission HPI Per Admitting Provider 35yo at 39+wls ega presents to L&D for planned induction due to insulin requiring gdm. pnc c/b 1. GDM on insulin--last growth 01/15 EFW 70%, nst testing, nl dvp on monday 2. AMA--low risk panorama 3. Hypothyroid--followed endo 4. Prior Gest HTN--on baby asa 5. Low lying placenta resolved 6. h/o stomach ulcers--has been seeing GI, on carafate 7. could not get heart anatomy x 2, nl echo pnl rh pos , rubella immune , gbs neg. obh: x 1, sab x 1 gynh: no stds, h/o LEEP pmh: migraines, depression/anxiety, rancho's thyroiditis, h/o stomach ulcers, psh: wisdom teeth, tonsillectomy Discharge Data Consultations 02/10/20 09:00 Consult Anesthesiology Stat Procedures Performed Operation Date: 02/10/20 14:15 Actual Procedures Primary Low Transverse Section - Catherine Smith MD, [facility] [place] [facility] Course (1) Encounter for induction of labor: (2) 39 weeks gestation of : (3) Insulin controlled gestational diabetes mellitus (GDM) during : (4) bradycardia: (5) S/P section: The patient was admitted and induction was begun with pitocin. She had a gimenez ripening balloon placed the evening before for an unfavorable cervix at term. Unfortunately, an episode of bradycardia remote from delivery occurred after patient had episode of generalized pain with acute shortness of breath. She was counseled about options and decision made to proceed with section. The procedure was performed with an estimated blood loss of 1000cc. The postoperative hemoglobin was 11.1 . Patient after delivery did not have a recurrance of her generalized pain or shortness of breath. On her postoperative day #2 she was stable for discharge home. She was tolerating a regular diet, ambulating and voiding without problem and pain was controlled on oral meds. She was given discharge instructions. Due to history of anxiety/depression she was restarted on her zoloft with a plan to contact her prescribing pcp about continuing treatment. Followup planned in office for 6wks. Coding Level of Care Code None Diagnoses Encounter for induction of labor Z34.90 39 weeks gestation of Z3A.39 Insulin controlled gestational diabetes mellitus (GDM) during O24.414 bradycardia S/P section Z98.891
== END 2020-02-12 13:05 | disposition home or self-care (01) | DRG 788 ==
LOC: 4S1 07:37 → 4S2 17:20